=== PATIENT | male | born 1975 | race Two or more races ===

== ENCOUNTER 2024-09-09 12:46 | Emergency (ER) | payer OTHER ==
[~2024-09-09] VITALS: Ht 172.7 cm; Wt 83.5 kg
[2024-09-09] MEDS ORDERED: CEFTRIAXONE SODIUM 1,000 MG VIAL IM ONE (14:00)
[2024-09-09] MEDS ORDERED: PEPCID AC20 MG PO (14:40)
[2024-09-09] MEDS ORDERED: CEPHALEXIN750 MG PO (14:40)
== END 2024-09-09 16:31 | disposition home or self-care (01) ==
LOC: ER 12:49
DX: L08.9 Local infection of the skin and subcutaneous tissue, unspecified (principal)

== ENCOUNTER 2024-12-19 16:13 | Outpatient (CLI) | payer OTHER ==
[~2024-12-19 16:13] MED LIST: CEPHALEXIN750 MG PO; PEPCID AC20 MG PO
== END 2024-12-19 16:23 | disposition home or self-care (01) ==
LOC: RAD 16:13
DX: J20.9 Acute bronchitis, unspecified (principal)

== ENCOUNTER 2025-03-19 12:16 | Emergency (ER) | payer OTHER ==
[~2025-03-19] VITALS: Ht 172.7 cm; Wt 81.6 kg
[2025-03-19] MEDS ORDERED: LOSARTAN POTASS25 MG PO (12:54)
[2025-03-19] MEDS ORDERED: NORFLEX100MG PO (14:34)
[2025-03-19] MEDS ORDERED: KETOROLAC TROMETHAMINE 30 MG VIAL ONE (14:34)
[2025-03-19] MEDS ORDERED: DICLOFENAC SODI50 MG PO (14:34)
[2025-03-19] MEDS ORDERED: ORPHENADRINE CITRATE 100 MG TABLET PO ONE (14:45)
[2025-03-19] MEDS ORDERED: KETOROLAC TROMETHAMINE 30 MG VIAL IM ONE (14:45)
== END 2025-03-19 14:50 | disposition home or self-care (01) ==
LOC: ER 12:34
DX: M54.50 Low back pain, unspecified (principal); I10 Essential (primary) hypertension